=== PATIENT | female | born 1980 | race Caucasian/White ===

== ENCOUNTER 2017-02-22 16:48 | Emergency (ER) | payer MEDICARE, MEDICAID ==
[~2017-02-22] VITALS: Ht 152.4 cm; Wt 104.4 kg
[~2017-02-22 16:48] MED LIST: CLON0.5T20 PO; DICY10CA3 PO; DICY20TA29 PO; DOCU-30 PO; IBUP-1222 PO; LEVE100020 PO; OXYC-302 PO; PREN1TAB60 PO; SERT100T5 PO
[2017-02-22] MEDS ORDERED: ONDANSETRON 2MG/ML, 2ML IVPush ONE (17:30)
[2017-02-22] MEDS ORDERED: SODIUM CHLORIDE 0.9% 1,000ML IVBOLUS ONE (17:30)
[2017-02-22] MEDS ORDERED: SODIUM CHLORIDE FLUSH 10ML SYR IVF ONE (17:30)
[2017-02-22 17:33] LABS: HEMOGLOBIN 12.6 g/dL (11.7-16.4)
[2017-02-22] MEDS ORDERED: ONDANSETRON 2MG/ML, 2ML ONE (17:41)
[2017-02-22 17:46] LABS: BLOOD UREA NITROGEN 12 mg/dL (7-18)
[2017-02-22 19:48] VITALS: BP 137/94
[2017-02-24] MEDS ORDERED: LEVE500T53 PO (21:57)
== END 2017-02-22 19:51 | disposition home or self-care (01) ==
LOC: ED 19:06
DX: G40.909 Epilepsy, unspecified, not intractable, without status epilepticus (principal); K58.9 Irritable bowel syndrome, unspecified
CPT/HCPCS: 36415; 70450; 80048; 82040; 85025; 93005; 96361; 96374; 99285; J2405; J7030

== ENCOUNTER 2017-10-10 17:54 | Outpatient (CLI) | payer MEDICARE, MEDICAID ==
[~2017-10-10] VITALS: Ht 152.4 cm; Wt 109.1 kg
[~2017-10-10 17:54] MED LIST changes: +DOCU-131 PO; -DOCU-30 PO; +LEVE500T53 PO
[2017-10-10 18:27] VITALS: BP 133/81
== END 2017-10-10 19:50 | disposition home or self-care (01) ==
LOC: LDOP 17:54
PROVIDERS: ATTEND Obstetrics & Gynecology
DX: O09.523 Supervision of elderly multigravida, third trimester (principal); O26.893 Other specified pregnancy related conditions, third trimester; R10.9 Unspecified abdominal pain; Z3A.33 33 weeks gestation of pregnancy
CPT/HCPCS: 59025; 81003; 87086; 99211; G0463

== ENCOUNTER 2017-11-04 11:35 | Outpatient (CLI) | payer MEDICARE, MEDICAID ==
[~2017-11-04] VITALS: Ht 152.4 cm; Wt 111.4 kg
[2017-11-04] MEDS ORDERED: CARB200T4 PO (11:59)
[2017-11-04] MEDS ORDERED: PREN1TAB60 PO (11:59)
[2017-11-04] MEDS ORDERED: FERR325T18 PO (11:59)
== END 2017-11-04 15:35 | disposition home or self-care (01) ==
LOC: LDOP 11:35
PROVIDERS: ATTEND Obstetrics & Gynecology
DX: O09.523 Supervision of elderly multigravida, third trimester (principal); O26.893 Other specified pregnancy related conditions, third trimester; O99.013 Anemia complicating pregnancy, third trimester; O99.343 Other mental disorders complicating pregnancy, third trimester; O99.333 Smoking (tobacco) complicating pregnancy, third trimester; D64.9 Anemia, unspecified; F32.9 Major depressive disorder, single episode, unspecified; F17.200 Nicotine dependence, unspecified, uncomplicated; R10.9 Unspecified abdominal pain; Z3A.36 36 weeks gestation of pregnancy
CPT/HCPCS: 59025; 76815; 81003; 87086; 99211; G0463

== ENCOUNTER 2017-11-30 14:57 | Emergency (ER) | payer MEDICARE, MEDICAID ==
[~2017-11-30] VITALS: Ht 154.9 cm; Wt 109.7 kg
[~2017-11-30 14:57] MED LIST changes: +CARB200T4 PO; +FERR325T18 PO; +IBUP-1223 PO
[2017-11-30 17:04] LABS: BASOPHILS # (AUTO) 0.03 x10^3/uL (0-0.1); BASOPHILS % (AUTO) 0 % (0-1); EOSINOPHILS # (AUTO) 0.27 x10^3/uL (0-0.4); EOSINOPHILS % (AUTO) 3 % (1-7); LYMPHOCYTES # (AUTO) 1.56 x10^3/uL (1-3.4); LYMPHOCYTES % (AUTO) 20 % (22-44); MD NO; MEAN CORPUSCULAR HEMOGLOBIN 34.3 pg (27.0-34.8); MEAN CORPUSCULAR HGB CONC 33.2 g/dL (32.4-35.8); MEAN CORPUSCULAR VOLUME 103.3 fL (80-100); MONOCYTES # (AUTO) 0.62 x10^3/uL (0.2-0.8); MONOCYTES % (AUTO) 8 % (2-9); NEUTROPHILS # (AUTO) 5.43 x10^3/uL (1.8-6.8); NEUTROPHILS % (AUTO) 69 % (42-75); PLATELET COUNT 331 x10^3/uL (130-400); RED BLOOD COUNT 3.16 x10^6/uL (3.82-5.3)
[2017-11-30 17:18] LABS: ALBUMIN 2.7 g/dL (3.4-5.0); ANION GAP 6 mmol/L (5-15); CALCIUM 8.5 mg/dL (8.5-10.1); CHLORIDE 113 mmol/L (98-107)
[2017-11-30 17:20] LABS: TROPONIN I < 0.015 ng/mL (0.000-0.045)
[2017-11-30 17:23] LABS: ALANINE AMINOTRANSFERASE 33 U/L (12-78); ALKALINE PHOSPHATASE 101 U/L (45-117); BILIRUBIN,TOTAL 0.2 mg/dL (0.2-1.0); CREATININE 0.58 mg/dL (0.55-1.02); TOTAL PROTEIN 6.6 g/dL (6.4-8.2)
[2017-11-30] MEDS ORDERED: KETOROLAC 30 MG/1 ML IM ONE (17:30)
[2017-11-30] MEDS ORDERED: KETOROLAC 30 MG/1 ML ONE (18:28)
[2017-11-30] MEDS ORDERED: ACETAMINOPHEN 650 MG SUPP PR ONE (18:30)
[2017-11-30] MEDS ORDERED: ACETAMINOPHEN 650 MG SUPP ONE (18:52)
[2017-11-30] MEDS ORDERED: ACETAMINOPHEN 325 MG TABLET ONE (18:52)
[2017-11-30 19:17] LABS: MICROSCOPIC AUTO
[2017-11-30 19:18] LABS: CULTURE INDICATED? YES
[2017-11-30 20:40] VITALS: BP 169/93
== END 2017-11-30 21:00 | disposition home or self-care (01) ==
LOC: ED 20:40
DX: R07.89 Other chest pain (principal); G40.909 Epilepsy, unspecified, not intractable, without status epilepticus; Z90.49 Acquired absence of other specified parts of digestive tract
CPT/HCPCS: 36415; 71046; 80053; 81001; 83880; 84484; 85025; 87086; 93005; 93970; 96372; 99285; J1885

== ENCOUNTER → 2018-01-12 | Outpatient (CLI) | payer MEDICARE, MEDICAID | LOC: RAD 10:56 | PROVIDERS: ATTEND Internal Medicine Gastroenterology | DX: K58.9 Irritable bowel syndrome, unspecified (principal); A04.72 Enterocolitis due to Clostridium difficile, not specified as recurrent; K92.1 Melena; K64.9 Unspecified hemorrhoids | CPT/HCPCS: 74018 ==

== ENCOUNTER 2018-05-12 22:11 | Emergency (ER) | payer MEDICARE, MEDICAID ==
[~2018-05-12] VITALS: Ht 152.4 cm; Wt 110.0 kg
[2018-05-12] MEDS ORDERED: VENL75CA PO (22:32)
[2018-05-12] MEDS ORDERED: LAMO25TA5 PO (22:32)
[2018-05-12] MEDS ORDERED: LOSA50TA2 PO (22:32)
[2018-05-12] MEDS ORDERED: CARB200T2 PO (22:32)
[2018-05-12] MEDS ORDERED: [UNRECOGNIZED DRUG - CODE] PO (22:32)
[2018-05-12] MEDS ORDERED: IRON1TAB60 PO (22:32)
[2018-05-12 22:46] LABS: BASOPHILS # (AUTO) 0.02 x10^3/uL (0-0.1); BASOPHILS % (AUTO) 0 % (0-1); EOSINOPHILS # (AUTO) 0.15 x10^3/uL (0-0.4); EOSINOPHILS % (AUTO) 2 % (1-7); LYMPHOCYTES # (AUTO) 1.49 x10^3/uL (1-3.4); LYMPHOCYTES % (AUTO) 19 % (22-44); MD NO; MEAN CORPUSCULAR HEMOGLOBIN 33.6 pg (27.0-34.8); MEAN CORPUSCULAR HGB CONC 33.8 g/dL (32.4-35.8); MEAN CORPUSCULAR VOLUME 99.3 fL (80-100); MONOCYTES # (AUTO) 0.41 x10^3/uL (0.2-0.8); MONOCYTES % (AUTO) 5 % (2-9); NEUTROPHILS # (AUTO) 5.58 x10^3/uL (1.8-6.8); NEUTROPHILS % (AUTO) 73 % (42-75); PLATELET COUNT 255 x10^3/uL (130-400); RED BLOOD COUNT 3.81 x10^6/uL (3.82-5.3)
[2018-05-12 22:58] LABS: ALANINE AMINOTRANSFERASE 32 U/L (12-78); ALBUMIN 3.6 g/dL (3.4-5.0); ANION GAP 7 mmol/L (5-15); CALCIUM 8.8 mg/dL (8.5-10.1); CHLORIDE 109 mmol/L (98-107); CREATININE 0.72 mg/dL (0.55-1.02)
[2018-05-12 22:59] LABS: SALICYLATE LEVEL < 1.7 mg/dL (2.8-20.0)
[2018-05-12 23:00] LABS: ACETAMINOPHEN < 2 mcg/mL (10-30); ALKALINE PHOSPHATASE 92 U/L (45-117); BILIRUBIN,TOTAL 0.3 mg/dL (0.2-1.0)
[2018-05-13] MEDS ORDERED: LEVETIRACETAM 500 MG in SODIUM CHLORIDE 0.9% 100 ML IV ONE (00:30)
[2018-05-13 00:54] LABS: AMPHETAMINE SCREEN, URINE Negative (Negative); BARBITURATE SCREEN, URINE Negative (Negative); BENZODIAZEPINE SCREEN, URINE Negative (Negative); CANNABINOID SCREEN, URINE Negative (Negative); COCAINE SCREEN, URINE Negative (Negative); METHADONE SCREEN, URINE Negative (Negative); OPIATE SCREEN, URINE Negative (Negative)
[2018-05-13 01:48] VITALS: BP 141/96
== END 2018-05-13 02:20 | disposition home or self-care (01) ==
LOC: ED 05-13 00:08
DX: T43.211A Poisoning by selective serotonin and norepinephrine reuptake inhibitors, accidental (unintentional), initial encounter (principal); R53.1 Weakness; Y92.89 Other specified places as the place of occurrence of the external cause
CPT/HCPCS: 36415; 80053; 80307; 80329; 85025; 96365; 99284; J1953; G0480

== ENCOUNTER → 2018-06-18 | Outpatient (CLI) | payer MEDICARE, MEDICAID ==
[~2018-06-18] MED LIST changes: +CARB200T2 PO; +IRON1TAB60 PO; +LAMO25TA5 PO; +LOSA50TA2 PO; +VENL75CA PO; +[UNRECOGNIZED DRUG - CODE] PO
== END | disposition home or self-care (01) ==
LOC: CARD 12:37
PROVIDERS: ATTEND Nurse Practitioner Family
DX: G40.409 Other generalized epilepsy and epileptic syndromes, not intractable, without status epilepticus (principal)
CPT/HCPCS: 95819

== ENCOUNTER 2018-12-05 04:43 | Emergency (ER) | payer MEDICARE, MEDICAID ==
[~2018-12-05] VITALS: Ht 154.9 cm; Wt 106.0 kg
[2018-12-05 05:31] LABS: BASOPHILS # (AUTO) 0.02 x10^3/uL (0-0.1); BASOPHILS % (AUTO) 0 % (0-1); EOSINOPHILS % (AUTO) 1 % (1-7); LYMPHOCYTES # (AUTO) 1.06 x10^3/uL (1-3.4); LYMPHOCYTES % (AUTO) 16 % (22-44); MD NO; MEAN CORPUSCULAR HEMOGLOBIN 33.7 pg (27.0-34.8); MEAN CORPUSCULAR HGB CONC 34.5 g/dL (32.4-35.8); MEAN CORPUSCULAR VOLUME 97.6 fL (80-100); MONOCYTES # (AUTO) 0.49 x10^3/uL (0.2-0.8); MONOCYTES % (AUTO) 7 % (2-9); NEUTROPHILS # (AUTO) 5.16 x10^3/uL (1.8-6.8); NEUTROPHILS % (AUTO) 76 % (42-75); PLATELET COUNT 250 x10^3/uL (130-400); RED BLOOD COUNT 3.99 x10^6/uL (3.82-5.3); RED CELL DISTRIBUTION WIDTH 12.8 % (9.6-15.2)
[2018-12-05 05:41] LABS: ALBUMIN 3.3 g/dL (3.4-5.0); ANION GAP 7 mmol/L (5-15); CALCIUM 8.4 mg/dL (8.5-10.1); CHLORIDE 109 mmol/L (98-107)
[2018-12-05 05:48] LABS: ALANINE AMINOTRANSFERASE 21 U/L (12-78); ALKALINE PHOSPHATASE 69 U/L (45-117); BILIRUBIN,TOTAL 0.4 mg/dL (0.2-1.0); CREATININE 0.84 mg/dL (0.55-1.02); TOTAL PROTEIN 7.4 g/dL (6.4-8.2)
--- NOTE | 2018-12-05 05:48 | NUR ---
FIRST CONTACT WITH PT. [facility]. PT REPORTS DIARRHEA X TUESDAY; NAUSEA AND EPIGASTRIC ABD PAIN X TUESDAY AND BLOOD IN STOOL X TUESDAY. PT REPORTS STOOL "APPEARS DARK". PT DENIES VOMITING/FEVER/URINARY SYMPTOMS/VAGINAL DC OR BLEEDING. DENIES TAKING BLOOD THINNER. HX OF HEMORRHOIDS AND WENDIE PT AMBULATED STEADILY TO BATHROOM TO ATTEMPT UA SAMPLE. BP/SPO2 MONITOR IN PLACE.
--- NOTE | 2018-12-05 06:07 | NUR ---
UA COLLECTED AND SENT TO LAB. BP/SPO2 MONITORING IN PLACE. PT UPDATED TO POC (RESULTS/RECHECK), PT DEMONSTRATES UNDERSTANDING.
[2018-12-05 06:27] LABS: MICROSCOPIC INDICATED
[2018-12-05 06:31] LABS: CULTURE INDICATED? NO
[2018-12-05] MEDS ORDERED: SODIUM CHLORIDE FLUSH 10ML SYR IVF ONE (07:00)
--- NOTE | 2018-12-05 07:31 | NUR ---
RECEIVED REPORT FROM INDIRA ALONSO. PT TAKEN TO CT SCAN
[2018-12-05] MEDS ORDERED: OMNIPAQUE 350 MG/ML, 150 ML BOTTLE ONE (07:35)
[2018-12-05 09:13] VITALS: BP 147/74
== END 2018-12-05 09:16 | disposition home or self-care (01) ==
LOC: ED 08:30
DX: R19.7 Diarrhea, unspecified (principal); R11.0 Nausea
CPT/HCPCS: 36415; 74021; 74177; 80053; 81001; 83690; 84703; 85025; 99284; Q9967

== ENCOUNTER 2019-01-29 09:38 | Emergency (ER) | payer MEDICARE, MEDICAID ==
[~2019-01-29] VITALS: Ht 160 cm; Wt 105.0 kg
[~2019-01-29 09:38] MED LIST changes: +SERT100T32 PO; -SERT100T5 PO
[2019-01-29 09:45] VITALS: BP 122/73
[2019-01-29 10:24] LABS: RAPID INFLUENZA A Negative (Negative); RAPID INFLUENZA B Negative (Negative)
== END 2019-01-29 11:11 | disposition home or self-care (01) ==
LOC: ED 10:50
DX: B34.9 Viral infection, unspecified (principal); G40.909 Epilepsy, unspecified, not intractable, without status epilepticus; Z90.49 Acquired absence of other specified parts of digestive tract
CPT/HCPCS: 87400; 99283

== ENCOUNTER 2019-06-17 00:36 | Emergency (ER) | payer MEDICARE, MEDICAID ==
[~2019-06-17] VITALS: Ht 154.9 cm; Wt 109.0 kg
[2019-06-17] MEDS ORDERED: ASPIRIN 325 MG TABLET PO ONE (01:00)
[2019-06-17 01:15] LABS: BASOPHILS # (AUTO) 0.02 x10^3/uL (0-0.1); BASOPHILS % (AUTO) 0 % (0-1); EOSINOPHILS # (AUTO) 0.05 x10^3/uL (0-0.4); EOSINOPHILS % (AUTO) 1 % (1-7); LYMPHOCYTES # (AUTO) 1.48 x10^3/uL (1-3.4); LYMPHOCYTES % (AUTO) 17 % (22-44); MD NO; MEAN CORPUSCULAR HEMOGLOBIN 32.8 pg (27.0-34.8); MEAN CORPUSCULAR HGB CONC 32.6 g/dL (32.4-35.8); MEAN CORPUSCULAR VOLUME 100.5 fL (80-100); MEAN PLATELET VOLUME 8.1 fL (7.4-10.4); MONOCYTES # (AUTO) 0.47 x10^3/uL (0.2-0.8); MONOCYTES % (AUTO) 6 % (2-9); NEUTROPHILS # (AUTO) 6.54 x10^3/uL (1.8-6.8); NEUTROPHILS % (AUTO) 76 % (42-75); PLATELET COUNT 274 x10^3/uL (130-400); RED CELL DISTRIBUTION WIDTH 12.7 % (9.6-15.2)
[2019-06-17 01:16] LABS: ALANINE AMINOTRANSFERASE 23 U/L (12-78); ALBUMIN 3.8 g/dL (3.4-5.0); ANION GAP 9 mmol/L (5-15); CALCIUM 9.8 mg/dL (8.5-10.1); CHLORIDE 107 mmol/L (98-107); CREATININE 0.75 mg/dL (0.55-1.02)
[2019-06-17] MEDS ORDERED: ASPIRIN 325 MG TABLET EC ONE (01:17)
[2019-06-17 01:20] LABS: ALKALINE PHOSPHATASE 83 U/L (45-117); BILIRUBIN,TOTAL 0.1 mg/dL (0.2-1.0); TOTAL PROTEIN 8.1 g/dL (6.4-8.2); TROPONIN I < 0.015 ng/mL (0.000-0.045)
[2019-06-17 01:59] VITALS: BP 135/86
== END 2019-06-17 02:04 | disposition home or self-care (01) ==
LOC: ED 02:00
DX: R07.2 Precordial pain (principal); I10 Essential (primary) hypertension
CPT/HCPCS: 36415; 71045; 80053; 84484; 84703; 85025; 93005; 99284

== ENCOUNTER 2020-02-02 01:51 | Emergency (ER) | payer MEDICARE, MEDICAID ==
[~2020-02-02] VITALS: Ht 154.9 cm; Wt 112.9 kg
--- NOTE | 2020-02-02 02:18 | NUR ---
ASSESSMENT MADE. CHART UP FOR MD TO SEE.
[2020-02-02] MEDS ORDERED: FAMOTIDINE 20 MG TABLET ONE (02:44)
[2020-02-02] MEDS ORDERED: DIPHENHYDRAMINE 25 MG CAPSULE ONE (02:45)
--- NOTE | 2020-02-02 02:50 | NUR ---
PATIENT MEDICATED FOR ALLERGIC REACTION.
[2020-02-02] MEDS ORDERED: FAMOTIDINE 20 MG TABLET PO ONE (03:00)
[2020-02-02] MEDS ORDERED: DIPHENHYDRAMINE 25 MG CAPSULE PO ONE (03:00)
--- NOTE | 2020-02-02 03:40 | NUR ---
PATIENT TO BATHROOM WITH STEADY GAIT.
--- NOTE | 2020-02-02 04:19 | NUR ---
REEVALUATION DONE. PATIENT STATES FEELING MUCH BETTER. DISCHARGED WITH OTC PRESCRIPTIONS. VERBALIZED UNDERSTANDING.
[2020-02-02 04:20] VITALS: BP 127/78
== END 2020-02-02 04:25 | disposition home or self-care (01) ==
LOC: ED 02:00
DX: T78.1XXA Other adverse food reactions, not elsewhere classified, initial encounter (principal); J02.8 Acute pharyngitis due to other specified organisms; B97.89 Other viral agents as the cause of diseases classified elsewhere; R47.02 Dysphasia; I10 Essential (primary) hypertension; G40.909 Epilepsy, unspecified, not intractable, without status epilepticus; X58.XXXA Exposure to other specified factors, initial encounter
CPT/HCPCS: 99284; J7512; Q0163

== ENCOUNTER 2020-02-08 12:00 | Outpatient (CLI) | payer MEDICARE, MEDICAID | END 2020-02-08 23:59 | disposition home or self-care (01) | LOC: RAD 12:00 | PROVIDERS: ATTEND Internal Medicine Gastroenterology | DX: K64.9 Unspecified hemorrhoids (principal); K52.9 Noninfective gastroenteritis and colitis, unspecified; R11.0 Nausea; A04.72 Enterocolitis due to Clostridium difficile, not specified as recurrent; Z90.49 Acquired absence of other specified parts of digestive tract | CPT/HCPCS: 74018 ==

== ENCOUNTER 2020-02-15 17:46 | Emergency (ER) | payer MEDICARE, MEDICAID ==
[~2020-02-15] VITALS: Ht 154.9 cm; Wt 112.2 kg
[2020-02-15 18:44] LABS: BASOPHILS # (AUTO) 0.02 x10^3/uL (0-0.1); BASOPHILS % (AUTO) 0 % (0-1); EOSINOPHILS # (AUTO) 0.06 x10^3/uL (0-0.4); EOSINOPHILS % (AUTO) 1 % (1-7); LYMPHOCYTES # (AUTO) 1.53 x10^3/uL (1-3.4); LYMPHOCYTES % (AUTO) 22 % (22-44); MD NO; MEAN CORPUSCULAR HEMOGLOBIN 33.6 pg (27.0-34.8); MEAN CORPUSCULAR HGB CONC 33.8 g/dL (32.4-35.8); MEAN CORPUSCULAR VOLUME 99.6 fL (80-100); MEAN PLATELET VOLUME 8.2 fL (7.4-10.4); MONOCYTES # (AUTO) 0.52 x10^3/uL (0.2-0.8); MONOCYTES % (AUTO) 7 % (2-9); NEUTROPHILS # (AUTO) 4.97 x10^3/uL (1.8-6.8); NEUTROPHILS % (AUTO) 70 % (42-75); PLATELET COUNT 252 x10^3/uL (130-400); RED BLOOD COUNT 3.67 x10^6/uL (3.82-5.3); RED CELL DISTRIBUTION WIDTH 12.8 % (9.6-15.2)
--- NOTE | 2020-02-15 18:54 | NUR ---
Report received from GAVIN Munguia. This RN to assume care. Patient up to bathroom to provide urine and stool sample.
[2020-02-15 18:56] LABS: ALANINE AMINOTRANSFERASE 16 U/L (12-78); ALBUMIN 3.4 g/dL (3.4-5.0); ANION GAP 4 mmol/L (5-15); CALCIUM 9.7 mg/dL (8.5-10.1); CHLORIDE 105 mmol/L (98-107); CREATININE 0.64 mg/dL (0.55-1.02)
[2020-02-15 18:58] LABS: ALKALINE PHOSPHATASE 75 U/L (45-117); TOTAL PROTEIN 7.7 g/dL (6.4-8.2)
[2020-02-15 18:59] LABS: BILIRUBIN,TOTAL < 0.1 mg/dL (0.2-1.0)
--- NOTE | 2020-02-15 19:25 | NUR ---
Patient states she has had abd cramping and nausea x3 days. Patient denies vomiting. Denies fevers. Patient has a hx of rectal bleeding x2 months ago; patient states it was c-diff. Patient has been lightheaded. Patient is in NAD. Respirations even and unlabored. Stool and urine samples collected.
[2020-02-15 19:34] LABS: MICROSCOPIC NOT IND
[2020-02-15 19:38] LABS: CULTURE INDICATED? NO
--- NOTE | 2020-02-15 20:22 | NUR ---
Pt amb w/ steady gait to rr. Awaiting ct.
[2020-02-15 20:34] LABS: CLOSTRIDIUM DIFFICILE ANTIGEN POSITIVE; CLOSTRIDIUM DIFFICILE TOXIN NEGATIVE (Negative)
[2020-02-15 22:19] VITALS: BP 134/73
[2020-02-15] MEDS ORDERED: OMNIPAQUE 350 MG/ML, 100ML BOTTLE ONE (23:24)
--- NOTE | 2020-02-16 16:41 | NUR ---
Joi RN: Received fax from [facility] with C. difficile results. Chart review provided to ED .
--- NOTE | 2020-02-16 17:28 | NUR ---
Throughput RN: Received chart review back from ED MD. Pt has positive results and is on appropriate Rx.
== END 2020-02-15 22:27 | disposition home or self-care (01) ==
LOC: ED 18:32
DX: A04.72 Enterocolitis due to Clostridium difficile, not specified as recurrent (principal); R19.7 Diarrhea, unspecified; I10 Essential (primary) hypertension; G40.909 Epilepsy, unspecified, not intractable, without status epilepticus; Z90.49 Acquired absence of other specified parts of digestive tract
CPT/HCPCS: 36415; 74177; 80053; 81003; 83690; 85025; 87324; 87493; 89055; 99285; Q9967

== ENCOUNTER 2020-03-03 13:36 | Outpatient (CLI) | payer MEDICARE, MEDICAID | END 2020-03-03 23:59 | disposition home or self-care (01) | LOC: STAR 13:36 | PROVIDERS: ATTEND Internal Medicine Gastroenterology | DX: Z02.9 Encounter for administrative examinations, unspecified (principal) ==

== ENCOUNTER → 2020-04-01 | Outpatient (CLI) | payer MEDICARE, MEDICAID ==
[~2020-04-01] MED LIST changes: +OMNIPAQUE 350 MG/ML, 150 ML BOTTLE ONE
== END | disposition home or self-care (01) ==
LOC: CFH 14:05
PROVIDERS: ATTEND Obstetrics & Gynecology Female Pelvic Medicine and Reconstructive Surgery
DX: R31.21 Asymptomatic microscopic hematuria (principal); K57.30 Diverticulosis of large intestine without perforation or abscess without bleeding; Z90.710 Acquired absence of both cervix and uterus
CPT/HCPCS: 74178; Q9967

== ENCOUNTER 2020-06-27 13:49 | Emergency (ER) | payer MEDICARE, MEDICAID ==
[~2020-06-27] VITALS: Ht 154.9 cm; Wt 114.0 kg
[~2020-06-27 13:49] MED LIST changes: -OMNIPAQUE 350 MG/ML, 150 ML BOTTLE ONE
[2020-06-27 14:07] VITALS: BP 142/95
--- NOTE | 2020-06-27 15:42 | NUR ---
NUTRITIONAL SERVICES HOST: PT TO ROOM AT THIS TIME. AMBULATORY WITH STEADY GAIT
--- NOTE | 2020-06-27 15:57 | NUR ---
PT AMBULATORY TO ROOM 7 W/ C/O WADE AND SORE THROAT STARTED YESTERDAY. PT RESTING ON DARRICK. NADN. PROSPER DELGADO AT BEDSIDE.
--- NOTE | 2020-06-27 16:45 | NUR ---
XR AT BEDSIDE.
[2020-06-27] MEDS ORDERED: ACETAMINOPHEN 500 MG TABLET ONE (16:53)
[2020-06-27] MEDS ORDERED: ACETAMINOPHEN 500 MG TABLET PO ONE (17:00)
== END 2020-06-27 17:45 | disposition home or self-care (01) ==
LOC: ED 16:32
DX: U07.1 COVID-19 (principal); B34.9 Viral infection, unspecified; R51 Headache; J02.9 Acute pharyngitis, unspecified; I10 Essential (primary) hypertension; G40.909 Epilepsy, unspecified, not intractable, without status epilepticus; Z90.49 Acquired absence of other specified parts of digestive tract
CPT/HCPCS: 36415; 71045; 87081; 87635; 87880; 99284

== ENCOUNTER 2020-07-23 17:39 | Emergency (ER) | payer MEDICARE, MEDICAID ==
[~2020-07-23] VITALS: Ht 154.9 cm; Wt 112.1 kg
[~2020-07-23 17:39] MED LIST changes: +ACID1TAB7 PO; +AMOX1TAB12 PO; +ASCO500T9 PO; +AZIT500T10 PO; +CHOL500045 PO; +DEXA4TAB66 PO; +HYDR453.3 TP; +LAMO100T8 PO; +LAMO200T6 PO; +MELA5TAB14 PO; +PANT40TA5 PO; +THIA100T67 PO; +VENL75CA6 PO; +ZINC220C7 PO
[2020-07-23 17:52] VITALS: BP 160/81
[2020-07-23 18:33] LABS: BASOPHILS # (AUTO) 0.01 x10^3/uL (0-0.1); BASOPHILS % (AUTO) 0 % (0-1); EOSINOPHILS # (AUTO) 0.02 x10^3/uL (0-0.4); EOSINOPHILS % (AUTO) 0 % (1-7); LYMPHOCYTES # (AUTO) 0.93 x10^3/uL (1-3.4); LYMPHOCYTES % (AUTO) 8 % (22-44); MD NO; MEAN CORPUSCULAR HEMOGLOBIN 33.9 pg (27.0-34.8); MEAN CORPUSCULAR HGB CONC 33.3 g/dL (32.4-35.8); MEAN CORPUSCULAR VOLUME 101.7 fL (80-100); MONOCYTES # (AUTO) 0.45 x10^3/uL (0.2-0.8); MONOCYTES % (AUTO) 4 % (2-9); NEUTROPHILS # (AUTO) 9.63 x10^3/uL (1.8-6.8); NEUTROPHILS % (AUTO) 87 % (42-75); PLATELET COUNT 292 x10^3/uL (130-400); RED BLOOD COUNT 3.25 x10^6/uL (3.82-5.3); RED CELL DISTRIBUTION WIDTH 14.5 % (9.6-15.2)
[2020-07-23 18:40] LABS: ALANINE AMINOTRANSFERASE 35 U/L (12-78); ALBUMIN 3.6 g/dL (3.4-5.0); ANION GAP 7 mmol/L (5-15); CALCIUM 8.9 mg/dL (8.5-10.1); CHLORIDE 108 mmol/L (98-107); CREATININE 0.89 mg/dL (0.55-1.02)
[2020-07-23 18:43] LABS: ALKALINE PHOSPHATASE 78 U/L (45-117); BILIRUBIN,TOTAL 0.2 mg/dL (0.2-1.0); TOTAL PROTEIN 7.5 g/dL (6.4-8.2)
--- NOTE | 2020-07-23 18:55 | NUR ---
STOOL COLLECTED AND WALKED TO THE LAB. PT C/O BLOOD IN THE LAURA SINCE YESTERDAY WITH RECENT DIAGNOSIS OF C-DIFF AND WAS ON ANTIBIOTICS. PT WAS ADMITTED IN HOSPITAL FOR COVID/RESP FAILURE ABOUT 10 DAYS AGO.
[2020-07-23] MEDS ORDERED: LORA-445 PO (19:01)
[2020-07-23] MEDS ORDERED: LOSA100T14 PO (19:01)
[2020-07-23] MEDS ORDERED: DICY20TA3 PO (19:01)
[2020-07-23 19:48] LABS: CLOSTRIDIUM DIFFICILE ANTIGEN NEGATIVE; CLOSTRIDIUM DIFFICILE TOXIN NEGATIVE (Negative)
--- NOTE | 2020-07-23 21:00 | NUR ---
DR. CABRERA AT BEDSIDE FOR RECHECK.
== END 2020-07-23 21:35 | disposition home or self-care (01) ==
LOC: ED 21:00
DX: R19.7 Diarrhea, unspecified (principal); K62.5 Hemorrhage of anus and rectum; I10 Essential (primary) hypertension; G40.909 Epilepsy, unspecified, not intractable, without status epilepticus; Z90.49 Acquired absence of other specified parts of digestive tract; Z87.891 Personal history of nicotine dependence
CPT/HCPCS: 36415; 80053; 85025; 87046; 87324; 89055; 99283

== ENCOUNTER → 2020-10-03 | Outpatient (CLI) | payer MEDICARE, MEDICAID ==
[~2020-10-03] MED LIST changes: +CARB200T PO; +DICY20TA3 PO; +FERR325T23 PO; +IBUP200C8 PO; +LORA-445 PO; +LOSA100T14 PO; +ONDA4TAB13 SL; -PANT40TA5 PO; +PANT40TA6 PO
[2020-10-03 15:35] LABS: BASOPHILS % (AUTO) 1 % (0-1); EOSINOPHILS % (AUTO) 1 % (1-7); LYMPHOCYTES % (AUTO) 25 % (22-44); MEAN CORPUSCULAR HEMOGLOBIN 33.8 pg (27.0-34.8); MEAN CORPUSCULAR HGB CONC 32.6 g/dL (32.4-35.8); MEAN PLATELET VOLUME 7.7 fL (7.4-10.4); MONOCYTES % (AUTO) 7 % (2-9); NEUTROPHILS % (AUTO) 68 % (42-75); PLATELET COUNT 269 x10^3/uL (130-400)
[2020-10-03 15:37] LABS: MD NO
[2020-10-03 15:41] LABS: ALANINE AMINOTRANSFERASE 10 U/L (12-78); ALBUMIN 3.6 g/dL (3.4-5.0); ANION GAP 3 mmol/L (5-15); CALCIUM 8.7 mg/dL (8.5-10.1); CHLORIDE 111 mmol/L (98-107); CREATININE 0.69 mg/dL (0.55-1.02)
[2020-10-03 15:43] LABS: ALKALINE PHOSPHATASE 75 U/L (45-117); BILIRUBIN,TOTAL 0.1 mg/dL (0.2-1.0); TOTAL PROTEIN 7.4 g/dL (6.4-8.2)
== END | disposition home or self-care (01) ==
LOC: STAR 14:25
PROVIDERS: ATTEND Internal Medicine Gastroenterology
DX: Z01.818 Encounter for other preprocedural examination (principal); R19.4 Change in bowel habit; K92.1 Melena; G40.909 Epilepsy, unspecified, not intractable, without status epilepticus; Z20.828 Contact with and (suspected) exposure to other viral communicable diseases
CPT/HCPCS: 36415; 80053; 85025; 87635

== ENCOUNTER 2020-10-08 10:41 | Day surgery (SDC) | payer MEDICARE, MEDICAID ==
[~2020-10-08] VITALS: Ht 154.9 cm; Wt 113.0 kg
[~2020-10-08 10:41] MED LIST changes: +ACETAMINOPHEN 325 MG TABLET PO PRN; +EPHEDRINE 50 MG/ML, 1ML IVPush PRN; +FENTANYL PF 100 MCG/2ML IV PRN; +LABETALOL 5MG/ML, 20ML IV PRN; +ONDANSETRON 2MG/ML, 2ML IVPush PRN; +PROMETHAZINE 25 MG/ML, 1ML IVPush PRN; +hydrALAzine 20 MG/ML, 1ML IV PRN
[2020-10-08 10:59] VITALS: BP 133/85
[2020-10-08] MEDS ORDERED: CHLORHEXIDINE 15 ML UDC MM STA (11:02)
[2020-10-08] MEDS ORDERED: CHLORHEXIDINE 15 ML UDC ONE (11:03)
[2020-10-08] MEDS ORDERED: LACTATED RINGERS 1,000 ML IV ONE (11:06)
[2020-10-08] MEDS ORDERED: PROPOFOL 10 MG/ML, 20ML ONE (12:07)
== END 2020-10-08 14:05 | disposition home or self-care (01) ==
LOC: OUT 10:41
PROVIDERS: ATTEND Internal Medicine Gastroenterology
DX: R19.7 Diarrhea, unspecified (principal); K92.1 Melena; K57.30 Diverticulosis of large intestine without perforation or abscess without bleeding; K64.8 Other hemorrhoids; E66.9 Obesity, unspecified; I10 Essential (primary) hypertension; Z79.899 Other long term (current) drug therapy; Z86.010 Personal history of colon polyps; Z91.040 Latex allergy status
CPT/HCPCS: 45380; 88305; J2704; J7120

== ENCOUNTER → 2021-07-10 | Outpatient (CLI) | payer MEDICARE, MEDICAID ==
[~2021-07-10] MED LIST changes: -ACETAMINOPHEN 325 MG TABLET PO PRN; -DICY20TA3 PO; +DICY20TA4 PO; -EPHEDRINE 50 MG/ML, 1ML IVPush PRN; -FENTANYL PF 100 MCG/2ML IV PRN; -LABETALOL 5MG/ML, 20ML IV PRN; -ONDANSETRON 2MG/ML, 2ML IVPush PRN; -OXYC-302 PO; +OXYC1TAB14 PO; -PROMETHAZINE 25 MG/ML, 1ML IVPush PRN; -hydrALAzine 20 MG/ML, 1ML IV PRN
== END | disposition home or self-care (01) ==
LOC: RAD 10:32
PROVIDERS: ATTEND Physician Assistant
DX: K52.9 Noninfective gastroenteritis and colitis, unspecified (principal); R14.0 Abdominal distension (gaseous)
CPT/HCPCS: 74018